=== PATIENT | male | born 1980 | race Caucasian/White ===

== ENCOUNTER → 2019-10-25 | Outpatient (CLI) | payer MEDICAID ==
--- NOTE | 2019-10-25 14:47 | Diagnostic Imaging Report ---
PROCEDURE: MRI lumbar spine. TECHNIQUE: Multiplanar, multisequence MRI of the lumbar spine was performed without contrast. INDICATION: Chronic low back pain. No prior studies are available for comparison. Curvature and alignment of the lumbar spine is normal. Vertebral body heights and marrow signal are normal. No fracture or geographic marrow lesion is seen. There is fairly normal height and signal intensity to the lumbar intervertebral discs with the exception of mild disc space narrowing and desiccation L2-L3 level. The conus is unremarkable at the L1 level. T12-L1: Central canal is widely patent. Neural foramina are widely patent. L1-L2: Central canal is widely patent. Neuroforamina are patent. L2-L3: There are ligamentous and facet changes at this level. There is some annular bulging. This does create narrowing of the lateral recesses bilaterally. Central canal is mildly narrowed as well. There appears to be moderate bilateral neural foraminal stenosis. L3-L4: There is some mild ligament thickening and facet changes. Mild central canal narrowing is noted. There is significant narrowing of bilateral lateral recesses. There is also moderate bilateral neural foraminal stenosis. L4-L5: There is some ligamentous thickening and facet changes. Ventral thecal sac is flattened. There is significant narrowing of lateral recesses bilaterally. There is mild bilateral neural foraminal narrowing. No significant central canal stenosis is seen. L5-S1: Central canal is patent. There is mild narrowing of the lateral recesses bilaterally. There is also moderate narrowing bilateral neural foramina. Paraspinous tissues are unremarkable. IMPRESSION: Lumbar spondylosis with multilevel central canal, lateral recess and neural foraminal stenosis described level by level above. Dictated by: Dictated on workstation # [id number]
== END ==
LOC: RAD 13:42
PROVIDERS: ATTEND Pediatrics
DX: M54.42 Lumbago with sciatica, left side (principal); G89.29 Other chronic pain; M47.816 Spondylosis without myelopathy or radiculopathy, lumbar region; M48.07 Spinal stenosis, lumbosacral region
CPT/HCPCS: 72148